=== PATIENT | male | born 1985 | race Caucasian/White ===

== ENCOUNTER 2023-06-03 09:40 | Emergency (ER) | payer MEDICAID, SELFPAY ==
[2023-06-03 09:47] VITALS: BP 131/82; PULSE 92; RESP 20; TEMP 36.8; O2SAT 96; BMI 27.0
[2023-06-03 09:49] VITALS: BP 130/83
--- NOTE | 2023-06-03 09:59 | ED.GENADUL1 ---
HPI - General Adult General Chief complaint: Neuro Symptoms/Deficit Stated complaint: NUMBNESS R & L ARM, BP SPIKE Time Seen by Provider: 06/03/23 09:46 Source: patient Mode of arrival: ambulance Limitations: no limitations History of Present Illness HPI narrative: patient brought to us by ambulance from a treatment facility for evaluation of right arm tingling and numbness. He states he felt fine, he went outside have a cigarette. After smoking a cigarette he said he stood up and his right arm felt tingling and numb. He was able use the arm and drinking glass of water with his right arm and had no motor weakness at that time. He did not have any double vision, no slurred speech no symptoms in his right leg or his left leg. hematuria sure that he had no clumsiness or weakness of the right arm while the tingling sensation happened. He says it feels like when your arm goes to sleep. He said it went away shortly thereafter. He is not being treated for cardiac arrhythmia previous strokes cardiovascular disease previous transient ischemic attacks diabetes. He's not had previous neck surgery or degenerative changes in his neck that he is aware of. He does not have a headache. He had no other neurological symptoms at the time. Related Data Home Medications Medication Instructions Recorded Confirmed amitriptyline 50 mg tablet 50 mg PO DAILY 06/03/23 06/03/23 buprenorphine 8 mg-naloxone 2 mg 1 film sublingual BID 06/03/23 06/03/23 sublingual film (Suboxone) diphenhydramine HCl 25 mg tablet 25 mg PO BEDTIME PRN sleep 06/03/23 06/03/23 (Allergy (diphenhydramine)) fluoxetine 20 mg capsule (Prozac) 20 mg PO DAILY 06/03/23 06/03/23 ziprasidone HCl 40 mg capsule 40 mg PO BID 06/03/23 06/03/23 (Geodon) Allergies Allergy/AdvReac Type Severity Reaction Status Date / Time CATERPILLARS Allergy Swelling Uncoded 06/03/23 09:47 of Lip/Tongue/Throat PFSH PFSH Social History Smoking status: Heavy tobacco smoker Exam Narrative Exam Narrative: GENERAL: Well hydrated, appears well, No obvious distress, Awake, Alert, Oriented x 3, Cognition intact HEENT: Normocephalic, No evidence of trauma, injury or infection, airway intact. Conjuntiva normal, no pallor or scleral icterus NECK: Supple, no meningeal irritation, full ROM, non-tender, No JVD, no carotid bruits bilaterally. CHEST: Symmetrical, no injury, non-tender, RESP: LCTA, no wheeze, rales, rhonchi,no subcutaneous emphysema, no labored respirations CARDIO: Normal rate and rhythm, No murmur, Rub, or ectopy during auscultation. ABD: Non-tender, normal BS, no guarding, rebound or rigidity. No pulsatile, masses. No organomegaly NEURO: Neuro at baseline, No motor deficits, CN 2-12 Normal, Mentation inctact.arm strength right upper extremity is excellent in all motor groups. Fine motor skills are normal. Deep tendon reflexes are symmetrical in upper extremities.no loss of sensation at this time. EXTREMITIES: No edema, good tissue perfusion, no venous cords, non-tender SKIN: No petechiae, purpura, or abnormal bruising, warm, dry, no rash Constitutional Vital Signs, click to edit/add: Last Vital Signs Temp 98.2 F 06/03/23 09:47 Pulse 92 H 06/03/23 09:47 Resp 06/03/23 09:47 BP 125/87 H 06/03/23 10:15 Pulse Ox 96 06/03/23 09:47 O2 Del Method Room Air 06/03/23 09:47 Course Vital Signs Vital signs: Vital Signs Temperature 98.2 F 06/03/23 09:47 Pulse Rate 92 H 06/03/23 09:47 Respiratory Rate 06/03/23 09:47 Blood Pressure 131/82 H 06/03/23 09:47 Pulse Oximetry 96 06/03/23 09:47 Oxygen Delivery Method Room Air 06/03/23 09:47 Temperature 98.2 F 06/03/23 09:47 Pulse Rate 92 H 06/03/23 09:47 Respiratory Rate 20 06/03/23 09:47 Blood Pressure 125/87 H 06/03/23 10:15 Pulse Oximetry 96 06/03/23 09:47 Oxygen Delivery Method Room Air 06/03/23 09:47 Medical Decision Making MDM Narrative Medical decision making narrative: patient's physical exam showed no focal abnormalities. CT scan head was negative. I do not believe is at high risk for ischemic transient ischemic attack. Discharge Plan Discharge Chief Complaint: Neuro Symptoms/Deficit Clinical Impression: Peripheral neuropathy Time of Disposition Decision: 11:01 Prescriptions / Home Meds: No Action diphenhydramine HCl [Allergy (diphenhydramine)] 25 mg tablet 25 mg PO BEDTIME PRN (Reason: sleep) amitriptyline 50 mg tablet 50 mg PO DAILY fluoxetine [Prozac] 20 mg capsule 20 mg PO DAILY buprenorphine-naloxone [Suboxone] 8-2 mg film 1 film sublingual BID ziprasidone HCl [Geodon] 40 mg capsule 40 mg PO BID Rx Instructions: give with food (meal/snack) Instructions: Peripheral Neuropathy (ED) Additional Instructions: follow-up with her primary care doctor or return here if symptoms persist or return Stand Alone Forms: Portal Instructions Referrals: Physician,Non-Staff, MD [Primary Care Provider] - 1 week
[2023-06-03 10:00] VITALS: BP 117/75
--- NOTE | 2023-06-03 10:08 | CT_ITS ---
The [address] [address] Patient Name: SURI RICHEY MRN: [id number] date: 1985 Sex: M Assigned Patient Location: ER Current Patient Location: ED.MAIN Accession/Order Number: [id number] Exam Date: 06/03/2023 10:21 Report Date: 06/03/2023 10:45 At the request of: AUBREY DAVEY Procedure: CT head/brain wo con CT head/brain wo con, 06/03/2023 10:21 AM EDT INDICATION: Right arm numb COMPARISON: None. TECHNIQUE: Axial CT images of the brain from skull base to vertex, including portions of the face and sinuses, were obtained without contrast. Multiplanar reformatted images were generated and reviewed as needed. FINDINGS: No intracranial mass, hydrocephalus, midline shift or acute hemorrhage. No extra-axial collection. Alberto-white matter differentiation is preserved. The paranasal sinuses and mastoid air cells are clear. Orbits are within normal limits. No acute skull fracture. CT/CT head/brain wo con IMPRESSION: No acute intracranial abnormality. Electronically authenticated by: BRAULIO WALLACE Date: 06/03/2023 10:45
[2023-06-03 10:15] VITALS: BP 125/87
--- NOTE | 2023-06-03 11:00 | ECG_ITS ---
The [facility] Test Date: 2023-06-03 Pat Name: SURI RICHEY Department: Room: - Gender: Male Global Marketing Coordinator: : 1985 Requested By: Order Number: [id number] Reading MD: WILLIAM THAPA Measurements Intervals [place] Rate: 101 P: 55 NE: 162 QRS: -4 QRSD: 96 T: 63 QT: 332 QTc: 390 Interpretive Statements 1120 Sinus tachycardia 9140 abnormal rhythm ECG No previous ECG available for comparison Electronically Signed On 06-04-2023 7:32:23 EDT by IWLLIAM THAPA
== END 2023-06-03 11:13 | disposition home or self-care (01) ==
PROVIDERS: Emergency Provider Emergency Medicine Emergency Medical Services
DX: G62.9 Polyneuropathy, unspecified (principal); F17.210 Nicotine dependence, cigarettes, uncomplicated; Z79.899 Other long term (current) drug therapy
CPT/HCPCS: 70450; 93005; 99284